=== PATIENT | male | born 1955 | race Caucasian/White ===

== ENCOUNTER → 2021-03-30 | Outpatient (CLI) | payer MEDICARE ==
[~2021-03-30] MED LIST: CRESTOR 10 MG T10 MG PO; FISH OIL EC 1,1 EAC1 PO; METOPROLOL SUCC25 MG PO; NORCO 7.5-3251 EACH PO; WARFARIN SODIUM4 MG PO; ZOLOFT25 MG PO
== END ==
LOC: RAD 12:20
DX: I69.391 Dysphagia following cerebral infarction (principal); R13.10 Dysphagia, unspecified
CPT/HCPCS: 74230; 92611-GN

== ENCOUNTER → 2021-04-13 | Outpatient (CLI) | payer MEDICARE | LOC: LAB 07:35 | DX: R97.20 Elevated prostate specific antigen [PSA] (principal) | CPT/HCPCS: 36415; 84153 ==

== ENCOUNTER → 2021-06-16 | Outpatient (CLI) | payer MEDICARE | LOC: ECHO 06-05 09:00 | DX: I48.91 Unspecified atrial fibrillation (principal); I49.5 Sick sinus syndrome; I07.1 Rheumatic tricuspid insufficiency | CPT/HCPCS: ECHO; 93306 ==

== ENCOUNTER → 2021-06-19 | Outpatient (CLI) | payer MEDICARE ==
[~2021-06-19] MED LIST changes: +ASPIRIN81 MG PO; +CLINDAMYCIN HC300 MG PO; +FINASTERIDE5 MG PO; +HYDROCODON-ACE1 EAC4 PO; +JANTOVEN1 MG PO; +LEVOFLOXACIN500 MG PO; +WARFARIN SODIUM2 MG PO
[2021-06-19 10:04] LABS: HEMOGLOBIN 16.7 gm/dl (14.0-17.5); RED BLOOD COUNT 5.8 M/UL (4.20-5.50); WHITE BLOOD COUNT 5.6 K/UL (4.5-11.0)
[2021-06-19 10:31] LABS: BUN/CREATININE RATIO 18 (0-10)
== END ==
LOC: LAB 09:37
PROVIDERS: Internal Medicine Cardiovascular Disease
DX: Z45.010 Encounter for checking and testing of cardiac pacemaker pulse generator [battery] (principal); I20.9 Angina pectoris, unspecified; I48.91 Unspecified atrial fibrillation; I49.5 Sick sinus syndrome; I10 Essential (primary) hypertension
CPT/HCPCS: 36415; 71046; 80048; 85025; 85610

== ENCOUNTER → 2021-10-16 | Outpatient (CLI) | payer MEDICARE | LOC: LAB 09:29 | DX: R97.20 Elevated prostate specific antigen [PSA] (principal) | CPT/HCPCS: 36415; 84153 ==